=== PATIENT | female | born 1985 | race Hispanic/Latino ===

== ENCOUNTER 2019-07-13 15:46 | Emergency (ER) | payer BC ==
[~2019-07-13 15:46] MED LIST: Iopamidol 370 76% 100 ML VIAL ONE
--- NOTE | 2019-07-13 16:53 | RAD ---
Chest AP view INDICATION: Shortness of breath COMPARISON: Chest 2 views dated April 09, 2002 FINDINGS: Lungs: The lungs are clear Cardiac silhouette: The cardiomediastinal silhouette appears within normal limits. Pulmonary vasculature: Normal Pleural spaces: No pleural effusion or pneumothorax is demonstrated. Upper abdomen: No abnormality seen. Osseous structures: No acute osseous abnormality. Additional findings: None. IMPRESSION: No acute cardiopulmonary abnormality.
[2019-07-13 17:03] LABS: #Basophils 0.1 thou/uL (0.0-0.2); #Eosinphils 0.4 thou/uL (0.0-0.7); #Lymphocytes 3.4 thou/uL (1.20-3.40); #Monocytes 0.7 thou/uL (0.11-0.59); #Neutrophils 4.4 thou/uL (1.40-6.50); %Eosinophils 4.1 % (0.0-10.0); %Lymphocytes 38.3 % (21.0-51.0); %Monocytes 7.8 % (0.0-10.0); %Neutrophils 48.8 % (42.0-75.0); Hemoglobin 14.9 g/dL (12.0-16.0); Mean Corpuscular HGB CONC 34.6 g/dL (32.0-36.0); Mean Corpuscular Hemoglobin 32.3 pg (27.0-31.0); Mean Corpuscular Volume 93.4 fL (78.0-98.0); Mean Platelet Volume 10.5 fL (7.4-10.4); Platelet Count 247 thou/uL (130-400); RBC Distribution Width 12.1 % (11.5-14.5); Red Blood Cell (RBC) Count 4.61 mill/uL (4.20-5.40)
[2019-07-13 17:13] LABS: BHCG - Serum Negative (NEGATIVE); Pregs Control Background? CLEAR/WHITE (CLR/WHITE); Pregs Control Bar Appear? YES (CONTROL BAR)
[2019-07-13 17:26] LABS: ALT (SGPT) 22 U/L (8-55); AST (SGOT) 14 U/L (5-34); Albumin 4.5 g/dL (3.5-5.0); Alkaline Phosphatase 108 U/L (40-110); Anion Gap 11 mmol/L (10-20); BUN (Urea Nitrogen) 9 mg/dL (7.0-18.7); Bilirubin, Total 0.5 mg/dL (0.2-1.2); CK (CPK) 122 U/L (29-168); Calc. Creatinine Clearance 0 mL/min (70-130); Calcium 9.4 mg/dL (7.8-10.44); Carbon Dioxide 23 mmol/L (22-29); Chloride 107 mmol/L (98-107); Estimated GFR-MDRD 85; Globulin 2.9 g/dL (2.4-3.5); Glucose 136 mg/dL (70-105); Potassium 3.4 mmol/L (3.5-5.1); Protein, Total 7.4 g/dL (6.0-8.3); Sodium 138 mmol/L (136-145)
--- NOTE | 2019-07-13 19:03 | CT ---
CTA CHEST WITH CONTRAST: Technique: Axial tomograms were obtained following angio protocol with multiplanar reconstruction and 3D post processing. FINDINGS: There is suboptimal opacification of pulmonary arteries. Both main pulmonary arteries show poor opaci fication and more peripheral pulmonary arteries are not adequately opacified. Thoracic aorta is opacified and is unremarkable. The lung penny are clear. No infiltrate or effusion. No evidence of adenopathy. IMPRESSION: 1. Nondiagnostic exam. The proximal and mid pulmonary arteries are not adequately opacified. If there is concern for pulmonary embolus, consider VQ scan. 2. No acute lung infiltrate. POS: [facility]
== END 2019-07-13 20:02 | disposition home or self-care (01) ==
LOC: ERS 15:46
DX: R06.02 Shortness of breath (principal); F41.9 Anxiety disorder, unspecified; E11.9 Type 2 diabetes mellitus without complications
CPT/HCPCS: 36415; 71045; 71275; 80053; 82550; 83605; 84443; 84484; 84703; 85025; 85379; 87804; 93005; Q9967

== ENCOUNTER 2020-12-27 17:30 | Emergency (ER) | payer BC ==
[2020-12-27] MEDS ORDERED: Ketorolac Tromethamine 30 MG/ML VIAL ONE (19:56)
[2020-12-28 01:22] LABS: SARS-CoV-2 PCR by NAA Not Detected (NotDetected)
== END 2020-12-27 20:45 | disposition home or self-care (01) ==
LOC: ERS 17:30
DX: R05 Cough (principal); R06.02 Shortness of breath; Z20.822 Contact with and (suspected) exposure to COVID-19; R51.9 Headache, unspecified
CPT/HCPCS: 71045; 93005; 96372; J1885; U0003; U0005

== ENCOUNTER 2021-05-26 16:16 | Emergency (ER) | payer BC ==
[2021-05-26 16:36] LABS: #Basophils 0.1 thou/uL (0.0-0.2); #Eosinphils 0.3 thou/uL (0.0-0.7); #Monocytes 0.7 thou/uL (0.11-0.59); #Neutrophils 5.1 thou/uL (1.40-6.50); %Basophils 0.8 % (0.0-1.0); %Eosinophils 3.2 % (0.0-10.0); %Lymphocytes 32.5 % (21.0-51.0); %Monocytes 7.4 % (0.0-10.0); %Neutrophils 56.1 % (42.0-75.0); Hemoglobin 14.4 g/dL (12.0-16.0); Mean Corpuscular HGB CONC 33.6 g/dL (32.0-36.0); Mean Corpuscular Hemoglobin 32.2 pg (27.0-31.0); Mean Corpuscular Volume 95.8 fL (78.0-98.0); Platelet Count 246 thou/uL (130-400); RBC Distribution Width 11.9 % (11.5-14.5); Red Blood Cell (RBC) Count 4.47 mill/uL (4.20-5.40); White Blood Cell (WBC) Count 9.1 thou/uL (4.8-10.8)
[2021-05-26 17:02] LABS: ALT (SGPT) 20 U/L (8-55); AST (SGOT) 15 U/L (5-34); Albumin 4.5 g/dL (3.5-5.0); Alkaline Phosphatase 88 U/L (40-110); Anion Gap 10 mmol/L (10-20); BUN (Urea Nitrogen) 13 mg/dL (7.0-18.7); Bilirubin, Total 0.5 mg/dL (0.2-1.2); Calc. Creatinine Clearance 0 mL/min (70-130); Calcium 9.8 mg/dL (7.8-10.44); Carbon Dioxide 26 mmol/L (22-29); Chloride 104 mmol/L (98-107); Globulin 2.9 g/dL (2.4-3.5); Glucose 132 mg/dL (70-105); Lipase 31 U/L (8-78); Potassium 3.7 mmol/L (3.5-5.1); Protein, Total 7.4 g/dL (6.0-8.3); Sodium 136 mmol/L (136-145)
[2021-05-26 17:04] LABS: Bilirubin Negative (Negative); Blood, Urine 3+ (Negative); Glucose, Urine (Dipstick) Normal (Negative); Ketone, Urine Negative (Negative); Leukocyte 75 Leu/uL (Negative); Nitrite Negative (Negative); Protein, Urine (Dipstick) 30 mg/dL (Neg-Trace); RBC/HPF Greater than 50 HPF (0-3); Specific Gravity, Urine 1.023 (1.002-1.036); Squamous Epithelial 0-3 HPF (0-3); Urobilinogen Normal mg/dL (Less than 2)
[2021-05-26 17:05] LABS: Bacteria/HPF Rare-Few HPF (None Seen); Clarity Cloudy (Clear)
[2021-05-26 17:05] LABS: Pregnancy Test - Urine (BHCG) Negative (Negative); Pregu Control Background? CLEAR/WHITE (CLR/WHITE); Pregu Control Bar Appear? YES (CONTROL BAR); Specific Gravity 1.023 (1.002-1.036)
[2021-05-26] MEDS ORDERED: Ondansetron PF 4 MG/2 ML Vial ONE (17:11)
[2021-05-26] MEDS ORDERED: Morphine 4 MG/ML VIAL ONE (17:11)
[2021-05-26] MEDS ORDERED: Ketorolac Tromethamine 30 MG/ML VIAL ONE (17:11)
== END 2021-05-26 18:50 | disposition home or self-care (01) ==
LOC: ERS 16:16
DX: N13.6 Pyonephrosis (principal)
CPT/HCPCS: 36415; 74176; 76705; 80053; 81003; 81015; 81025; 83690; 85025; 96374; 96375; J1885; J2270; J2405